=== PATIENT | female | born 1970 | race Caucasian/White ===

== ENCOUNTER 2018-06-13 19:36 | Inpatient (IN) | payer OTHER ==
[~2018-06-13] VITALS: Ht 172.7 cm; Wt 76.2 kg
[~2018-06-13 19:36] MED LIST: FERR-63 PO; HYDR-523 PO; LEVO500T2 PO; ONDA4TAB5 PO
[2018-06-13] MEDS ORDERED: SODIUM CHLORIDE 0.9% 1,000 ML IV ONE (21:47)
[2018-06-13] MEDS ORDERED: ONDANSETRON HCL 4MG/2ML INJ IV STA (21:47)
[2018-06-13] MEDS ORDERED: KETOROLAC 30MG/ML VIAL IV STA (21:47)
[2018-06-13] MEDS ORDERED: FAMOTIDINE 20MG/2ML VIAL IV STA (21:47)
[2018-06-13 23:30] LABS: BASOPHILS % 0.3 % (0.0-2.0); EOSINOPHILS % 0.1 % (0.0-5.0); HEMATOCRIT. 42.3 % (36.0-48.0); LYMPHOCYTES % 8.8 % (20.0-50.0); MEAN CORPUSCULAR HEMOGLOBIN 30.9 pg (28.0-32.0); MEAN CORPUSCULAR VOLUME 93.3 fL (81.0-99.0); MEAN PLATELET VOLUME 9.8 fl (7.4-10.4); MONOCYTES % 6.4 % (2.0-8.0); NEUTROPHILS % 84.4 % (40.0-76.0); PLATELET 189 x1000/uL (130-400); RED BLOOD CELL COUNT 4.53 mill/uL (4.2-5.4)
[2018-06-13 23:31] LABS: CHLORIDE 111 mEq/L (98-107)
[2018-06-13 23:33] LABS: PROTHROMBIN TIME 10.2 sec (9.1-11.1)
[2018-06-14 00:12] LABS: CLARITY URINE TURBID (CLEAR); COLOR URINE DARK YELLOW (YELLOW); KETONES URINE NEGATIVE (NEGATIVE); LEUKOCYTE ESTERASE URINE NEGATIVE (NEGATIVE); NITRITE URINE NEGATIVE (NEGATIVE); OCCULT BLOOD URINE NEGATIVE (NEGATIVE); PH URINE >=9.0 (4.5-8.0); PROTEIN URINE TRACE (NEGATIVE); SPECIFIC GRAVITY URINE 1.019 (1.005-1.030)
[2018-06-14] MEDS ORDERED: METRONIDAZOLE 500 MG PREMIX 100 ML IV ONE (01:15)
[2018-06-14] MEDS ORDERED: LEVOFLOXACIN 500MG PREMIX 100 ML IV ONE (01:15)
[2018-06-14] MEDS ORDERED: ACETAMINOPHEN 650MG SUPP PR PRN (08:15)
[2018-06-14] MEDS ORDERED: ACETAMINOPHEN 650MG/20.3ML UDC GT PRN (08:15)
[2018-06-14] MEDS ORDERED: ONDANSETRON HCL 4MG/2ML INJ IV PRN (08:15)
[2018-06-14] MEDS ORDERED: ACETAMINOPHEN 325MG TABLET PO PRN (08:15)
[2018-06-14] MEDS ORDERED: HYDROCODONE/ACETAMINOPHEN 5/325MG TABLET PO PRN (08:15)
[2018-06-14 08:30] VITALS: BP 148/73
[2018-06-14] MEDS ORDERED: DIATR MEGLU/DIATRIZOATE SOLN 30ML PO SCH (09:15)
[2018-06-14] MEDS ORDERED: MORPHINE SULFATE 4 MG/ML CPJ (NOT FOR IM USE) IV PRN (09:15)
[2018-06-14 09:30] VITALS: BP 130/62
[2018-06-14 12:00] VITALS: BP 113/57
[2018-06-14] MEDS: SODIUM CHLORIDE 0.45% 1,000 ML IV SCH (12:02)
[2018-06-14 16:00] VITALS: BP 120/66
[2018-06-14 16:54] LABS: CREATINE KINASE 67 IU/L (26-192)
[2018-06-14 16:56] LABS: CREATINE KINASE MB FRACTION < 1.0 ng/mL (0.5-3.6)
[2018-06-14 16:57] LABS: HCG SCREEN NEGATIVE
[2018-06-14] MEDS: METRONIDAZOLE 500 MG PREMIX 100 ML IV SCH (17:32)
[2018-06-14 19:13] LABS: HEPATITIS B SURFACE ANTIGEN NEGATIVE
[2018-06-14 19:41] LABS: HEPATITIS B CORE AB IGM NEGATIVE
[2018-06-14 19:43] LABS: HEPATITIS A AB IGM NEGATIVE (NEGATIVE)
[2018-06-14 20:00] VITALS: BP_SYST 133; BP_SYST 145; BP_DIAS 66; BP_DIAS 82
[2018-06-14] MEDS ORDERED: IOHEXOL-300 100 ML BOTTLE ONE (20:40)
[2018-06-14] MEDS ORDERED: LEVOFLOXACIN 500MG PREMIX 100 ML IV SCH (22:00)
[2018-06-15] VITALS: BP 122/77
[2018-06-15 00:26] LABS: CREATINE KINASE 60 IU/L (26-192)
[2018-06-15 00:28] LABS: CREATINE KINASE MB FRACTION < 1.0 ng/mL (0.5-3.6)
[2018-06-15] MEDS: METRONIDAZOLE 500 MG PREMIX 100 ML IV SCH ×2 (01:34→09:45)
[2018-06-15 04:00] VITALS: BP 132/70
[2018-06-15] MEDS: SODIUM CHLORIDE 0.45% 1,000 ML IV SCH ×2 (05:51→15:44)
[2018-06-15 07:38] LABS: BASOPHILS % 0.5 % (0.0-2.0); EOSINOPHILS % 1.4 % (0.0-5.0); LYMPHOCYTES % 15.9 % (20.0-50.0); MEAN CORPUSCULAR HEMOGLOBIN 31.7 pg (28.0-32.0); MEAN CORPUSCULAR VOLUME 92.8 fL (81.0-99.0); MEAN PLATELET VOLUME 9.8 fl (7.4-10.4); MONOCYTES % 7.2 % (2.0-8.0); PLATELET 184 x1000/uL (130-400); RED BLOOD CELL COUNT 4.41 mill/uL (4.2-5.4); RED CELL DISTRIBUTION WIDTH 13.3 % (11.6-14.6)
[2018-06-15 07:57] LABS: CHLORIDE 107 mEq/L (98-107)
[2018-06-15 08:22] LABS: LDL CHOLESTEROL 92 mg/dL (5-100)
[2018-06-15 08:24] LABS: T4 FREE 0.96 ng/dL (0.76-1.46)
[2018-06-15 08:25] LABS: HDL CHOLESTEROL 52 mg/dL (40-59)
[2018-06-15 15:53] VITALS: BP 124/53
== END 2018-06-15 17:20 | disposition home or self-care (01) ==
LOC: ER 19:36 → 6EST 06-14 01:01 → EDBEDREQTM 06-14 01:14 → EDBEDREQ 06-14 01:14 → ENRESERV 06-14 06:55
PROVIDERS: ADMIT Internal Medicine; ATTEND Internal Medicine
DX: K80.62 Calculus of gallbladder and bile duct with acute cholecystitis without obstruction (principal); E87.8 Other disorders of electrolyte and fluid balance, not elsewhere classified; K76.0 Fatty (change of) liver, not elsewhere classified; D25.9 Leiomyoma of uterus, unspecified; E86.0 Dehydration; Z98.891 History of uterine scar from previous surgery
CPT/HCPCS: 36415; 74177; 76705; 78227; 80053; 80061; 80076; 81003; 82550; 82553; 83036; 83690; 84439; 84443; 84481; 84484; 84703; 85025; 85610; 86705; 86709; 86803; 87340; 93005; 93970; 96374; 96375; 99291; A9537; J1885; J1956; J2405; J3490; J7030; Q9963; Q9967

== ENCOUNTER 2019-01-31 18:44 | Inpatient (IN) | payer MEDICAID, OTHER ==
[~2019-01-31] VITALS: Ht 157.5 cm; Wt 76.7 kg
[2019-01-31] MEDS ORDERED: SODIUM CHLORIDE 0.9% 1,000 ML IV ONE (23:35)
[2019-01-31] MEDS ORDERED: ONDANSETRON HCL 4MG/2ML INJ IV STA (23:35)
[2019-01-31] MEDS ORDERED: MORPHINE SULFATE 4 MG/ML CPJ (NOT FOR IM USE) IV STA (23:35)
[2019-01-31 23:47] LABS: CLARITY URINE CLEAR (CLEAR); COLOR URINE YELLOW (YELLOW); KETONES URINE NEGATIVE (NEGATIVE); LEUKOCYTE ESTERASE URINE NEGATIVE (NEGATIVE); NITRITE URINE NEGATIVE (NEGATIVE); OCCULT BLOOD URINE NEGATIVE (NEGATIVE); PROTEIN URINE NEGATIVE (NEGATIVE); SPECIFIC GRAVITY URINE 1.014 (1.005-1.030)
[2019-02-01 00:19] LABS: BASOPHILS % 0.3 % (0.0-2.0); EOSINOPHILS % 0.4 % (0.0-5.0); HEMATOCRIT. 43.8 % (36.0-48.0); HEMOGLOBIN. 14.6 g/dL (12.0-16.0); LYMPHOCYTES % 16.1 % (20.0-50.0); MEAN CORPUSCULAR HEMOGLOBIN 31.5 pg (28.0-32.0); MEAN CORPUSCULAR VOLUME 94.2 fL (81.0-99.0); MEAN PLATELET VOLUME 9.3 fl (7.4-10.4); MONOCYTES % 7.5 % (2.0-8.0); NEUTROPHILS % 75.7 % (40.0-76.0); PLATELET 204 x1000/uL (130-400); RED BLOOD CELL COUNT 4.65 mill/uL (4.2-5.4); RED CELL DISTRIBUTION WIDTH 13.3 % (11.6-14.6)
[2019-02-01 00:23] LABS: CHLORIDE 110 mEq/L (98-107)
[2019-02-01] MEDS ORDERED: CEFTRIAXONE 1 G PREMIX 50 ML IV ONE (02:15)
[2019-02-01] MEDS ORDERED: IOHEXOL-300 100 ML BOTTLE ONE (03:48)
[2019-02-01] MEDS ORDERED: ACETAMINOPHEN 325MG TABLET PO PRN (08:15)
[2019-02-01] MEDS ORDERED: GUAIFENESIN 200MG/10ML SUGAR FREE UDC PO PRN (08:15)
[2019-02-01] MEDS ORDERED: HYDROCODONE/ACETAMINOPHEN 10/325MG TABLET PO PRN (08:15)
[2019-02-01] MEDS ORDERED: NA PHOS,M-B/NA PHOS,DI-BA ENEMA 118ML PR PRN (08:15)
[2019-02-01] MEDS ORDERED: DIPHENHYDRAMINE 50MG/ML VIAL IV PRN (08:15)
[2019-02-01] MEDS ORDERED: IPRATROPIUM/ALBUTEROL 0.5-3(2.5)MG/3ML NEB INH PRN (08:15)
[2019-02-01] MEDS ORDERED: MAGNESIUM/ALUMINUM HYDROXIDE/SIMETHICONE 30ML UDC PO PRN (08:15)
[2019-02-01] MEDS ORDERED: DOCUSATE SODIUM 100MG CAPSULE PO PRN (08:15)
[2019-02-01] MEDS ORDERED: HYDROMORPHONE HCL/PF 2MG/ML CPJ IV PRN (08:15)
[2019-02-01] MEDS ORDERED: CLONIDINE 0.1MG TABLET PO PRN (08:15)
[2019-02-01] MEDS ORDERED: ONDANSETRON HCL 4MG/2ML INJ IV PRN (08:15)
[2019-02-01] MEDS ORDERED: HYDRALAZINE 20MG/ML VIAL IV PRN (08:15)
[2019-02-01] MEDS ORDERED: LORAZEPAM 2MG/ML CPJ IV PRN (08:15)
[2019-02-01 08:30] VITALS: BP 133/73
[2019-02-01] MEDS ORDERED: HYDRALAZINE 10 MG in SODIUM CHLORIDE 0.9% 49.5 ML IV PRN (09:00)
[2019-02-01] MEDS: ENOXAPARIN 40MG/0.4ML SYR SUBCUT SCH (11:41)
[2019-02-01 11:58] VITALS: BP 111/59
[2019-02-01] MEDS: SODIUM CHLORIDE 0.45% 1,000 ML IV SCH (12:15)
[2019-02-01] MEDS: SODIUM CHLORIDE 0.9% INJ 3ML FLUSH IVF SCH ×2 (14:46→23:53)
[2019-02-01] MEDS: OMEPRAZOLE 20MG CAPSULE EXTENDED RELEASE PO SCH (14:47)
[2019-02-01 15:50] VITALS: BP 102/54
[2019-02-01 20:00] VITALS: BP 94/54
[2019-02-02] VITALS: BP 99/58
[2019-02-02 04:00] VITALS: BP 107/57
[2019-02-02] MEDS: OMEPRAZOLE 20MG CAPSULE EXTENDED RELEASE PO SCH (06:37)
[2019-02-02] MEDS: SODIUM CHLORIDE 0.45% 1,000 ML IV SCH (06:41)
[2019-02-02] MEDS: SODIUM CHLORIDE 0.9% INJ 3ML FLUSH IVF SCH (06:41)
[2019-02-02 06:58] LABS: BASOPHILS % 0.2 % (0.0-2.0); EOSINOPHILS % 2.1 % (0.0-5.0); HEMATOCRIT. 42.4 % (36.0-48.0); HEMOGLOBIN. 14.1 g/dL (12.0-16.0); LYMPHOCYTES % 22.8 % (20.0-50.0); MEAN CORPUSCULAR HEMOGLOBIN 31.2 pg (28.0-32.0); MEAN PLATELET VOLUME 9.4 fl (7.4-10.4); MONOCYTES % 6.9 % (2.0-8.0); PLATELET 187 x1000/uL (130-400); RED BLOOD CELL COUNT 4.51 mill/uL (4.2-5.4)
[2019-02-02 07:34] LABS: CHLORIDE 108 mEq/L (98-107)
[2019-02-02 07:53] LABS: LDL CHOLESTEROL 96 mg/dL (5-100)
[2019-02-02 07:54] LABS: HDL CHOLESTEROL 42 mg/dL (40-59)
[2019-02-02 08:00] VITALS: BP 101/62
[2019-02-02 11:27] VITALS: BP 113/68
[2019-02-02 11:40] VITALS: BP 106/71
== END 2019-02-02 13:12 | disposition home or self-care (01) ==
LOC: ER 18:44 → 6EST 02-01 02:44 → EDBEDREQ 02-01 02:49 → EDBEDREQTM 02-01 02:49 → ENRESERV 02-01 07:11 → 6EST 02-01 08:52
PROVIDERS: ADMIT Internal Medicine; ATTEND Internal Medicine
DX: K80.20 Calculus of gallbladder without cholecystitis without obstruction (principal); R65.10 Systemic inflammatory response syndrome (SIRS) of non-infectious origin without acute organ dysfunction; K76.0 Fatty (change of) liver, not elsewhere classified; R91.8 Other nonspecific abnormal finding of lung field; E66.9 Obesity, unspecified; D25.9 Leiomyoma of uterus, unspecified; Z87.442 Personal history of urinary calculi; Z98.891 History of uterine scar from previous surgery; Z79.899 Other long term (current) drug therapy; Z68.30 Body mass index [BMI] 30.0-30.9, adult
CPT/HCPCS: 36415; 71045; 74177; 76705; 80061; 83605; 93005; 93970; 96365; 96375; 99285; J0696; J1650; J2270; J2405; J7030; Q9967